=== PATIENT | male | born 1970 | race Caucasian/White ===

== ENCOUNTER 2017-04-08 11:00 | Emergency (ER) | payer OTHER ==
[~2017-04-08] VITALS: Ht 188 cm; Wt 163.2 kg
[2017-04-08] MEDS ORDERED: NORCO 325 MG-51 TA1 PO (11:05)
[2017-04-08] MEDS ORDERED: LEVAQUIN 750MG750 M1 PO (11:06)
[2017-04-08] MEDS ORDERED: KETOROLAC10 MG PO (14:17)
[2017-04-08 14:29] VITALS: BP 128/85
== END 2017-04-08 14:30 | disposition home or self-care (01) ==
LOC: ED 11:00
DX: R10.13 Epigastric pain (principal); R10.11 Right upper quadrant pain; Z98.890 Other specified postprocedural states; Z90.49 Acquired absence of other specified parts of digestive tract; R63.0 Anorexia; I25.10 Atherosclerotic heart disease of native coronary artery without angina pectoris; Z95.5 Presence of coronary angioplasty implant and graft; I10 Essential (primary) hypertension; E10.9 Type 1 diabetes mellitus without complications; Z91.14 Patient's other noncompliance with medication regimen; F41.9 Anxiety disorder, unspecified; R06.4 Hyperventilation; R60.0 Localized edema
CPT/HCPCS: J1885